=== PATIENT | female | born 1995 | race Two or more races ===

== ENCOUNTER 2018-05-10 17:37 | Emergency (ER) | payer MEDICAID ==
[~2018-05-10] VITALS: Ht 167.6 cm; Wt 84.4 kg
[2018-05-10 20:16] LABS: Urine Bacteria NONE SEEN /hpf (None Seen); Urine Blood TRACE /uL (Negative); Urine Mucus FEW (None Seen); Urine Specific Gravity 1.038 (1.001-1.035); Urine WBC 6 /hpf (0 - 5)
[2018-05-10 23:26] VITALS: BP 128/63
== END 2018-05-10 22:24 | disposition home or self-care (01) ==
LOC: ER 17:43
DX: N39.0 Urinary tract infection, site not specified (principal); Z88.0 Allergy status to penicillin
CPT/HCPCS: 81001; 81025

== ENCOUNTER 2018-06-25 05:04 | Emergency (ER) | payer MEDICAID ==
[~2018-06-25] VITALS: Ht 167.6 cm; Wt 81.6 kg
[2018-06-25 07:29] VITALS: BP 147/71
== END 2018-06-25 07:38 | disposition home or self-care (01) ==
LOC: ER 05:04
DX: J02.9 Acute pharyngitis, unspecified (principal); Z88.0 Allergy status to penicillin
CPT/HCPCS: 71046; 81025